=== PATIENT | male | born 1990 | race Caucasian/White ===

== ENCOUNTER 2023-07-02 23:51 | Emergency (ER) | payer SELFPAY ==
[~2023-07-02] VITALS: Ht 165.1 cm; Wt 88.5 kg
[2023-07-03 01:13] VITALS: BP 119/51; PULSE 68; RESP 17; TEMP 97.9; O2SAT 99
== END 2023-07-03 04:16 | disposition home or self-care (01) ==
LOC: ER 23:51
DX: S61.212A Laceration without foreign body of right middle finger without damage to nail, initial encounter (principal); W26.8XXA Contact with other sharp object(s), not elsewhere classified, initial encounter; Y93.89 Activity, other specified; Y92.89 Other specified places as the place of occurrence of the external cause; Y99.8 Other external cause status
CPT/HCPCS: 12001; 99282; Z7610 ×2